=== PATIENT | male | born 2000 | race Caucasian/White ===

== ENCOUNTER 2019-03-23 14:09 | Emergency (ER) | payer BC ==
[~2019-03-23] VITALS: Ht 182.9 cm; Wt 145.5 kg
[2019-03-23 14:13] VITALS: Ht 182.9 cm; Wt 145.5 kg
[2019-03-23 14:34] VITALS: BP 135/78
== END 2019-03-23 14:34 | disposition left against medical advice (07) ==
LOC: D.ER 14:09
DX: R03.0 Elevated blood-pressure reading, without diagnosis of hypertension (principal)